=== PATIENT | male | born 1955 | race Caucasian/White ===

== ENCOUNTER 2017-06-21 10:20 | Day surgery (SDC) | payer OTHER ==
[~2017-06-21] VITALS: Ht 185.4 cm; Wt 105.2 kg
[2017-06-21] VITALS (10 sets, daily range): BP systolic 154–158; BP diastolic 51–91; PULSE 50–82; RESP 16–18; TEMP 97.8–98; O2SAT 52–98
[2017-06-21] MEDS ORDERED: IOHEXOL 350 MG/ML 100 ML BTL (for Cath Lab) OTHER ONE (10:21)
[2017-06-21] MEDS ORDERED: NS 1000P @30 MLS/HR (KVO) IV SCH (11:00)
[2017-06-21] MEDS ORDERED: NITR1SUB3 SL (11:18)
[2017-06-21] MEDS ORDERED: METO25TA3 PO (11:18)
[2017-06-21] MEDS ORDERED: OMEP20TA93 PO (11:18)
[2017-06-21] MEDS ORDERED: ATOR40TA16 PO (11:18)
[2017-06-21] MEDS ORDERED: ALFU10TA2 PO (11:18)
[2017-06-21] MEDS ORDERED: ISOS30TA3 PO (11:18)
[2017-06-21] MEDS ORDERED: ASPI81CH6 CHEW (11:18)
[2017-06-21 11:31] LABS: AUTOMATED NEUTROPHIL # 4.4 TH/MM3 (1.8-7.7); BASOPHIL # 0.1 TH/MM3 (0-0.2); BASOPHIL % 1.1 % (0.0-2.0); EOSINOPHIL # 0.1 TH/MM3 (0-0.4); EOSINOPHIL % 1.7 % (0.0-4.0); HEMATOCRIT 44.1 % (39.0-51.0); LYMPHOCYTE # 1.5 TH/MM3 (1.0-4.8); MEAN CORPUSCULAR HEMOGLOBIN 29.7 PG (27.0-34.0); MEAN CORPUSCULAR HGB CONC 34.1 % (32.0-36.0); MEAN PLATELET VOLUME 9.3 FL (7.0-11.0); MONO % 6.8 % (0.0-8.0); MONOCYTE # 0.4 TH/MM3 (0-0.9); NEUT % 67.4 % (16.0-70.0); PLATELET COUNT 282 TH/MM3 (150-450); RED BLOOD COUNT 5.06 MIL/MM3 (4.50-5.90); RED CELL DISTRIBUTION WIDTH 14.3 % (11.6-17.2); WHITE BLOOD COUNT 6.6 TH/MM3 (4.0-11.0)
[2017-06-21 11:39] LABS: PROTHROMBIN TIME - PATIENT 10.3 SEC (9.8-11.6)
[2017-06-21 11:49] LABS: BICARBONATE 23.2 MEQ/L (21.0-32.0); CALCIUM 8.9 MG/DL (8.5-10.1); CREATININE 1.06 MG/DL (0.60-1.30)
[2017-06-21] MEDS ORDERED: MIDAZOLAM HCL 2 MG/2 ML VIAL ONE ×3 (12:54→14:11)
[2017-06-21] MEDS ORDERED: HEPARIN-NS/PF FLUSH BAG 2,000 ML IV FLUSH ONE (12:54)
[2017-06-21] MEDS ORDERED: HEPARIN SODIUM - IV 10,000 UNITS/10 ML VIAL ONE (13:39)
[2017-06-21] MEDS ORDERED: CLOPIDOGREL 300 MG TAB ONE (14:02)
[2017-06-21] MEDS ORDERED: ASPIRIN 325 MG TAB ONE (14:03)
--- NOTE | 2017-06-21 14:53 | CATHPROC ---
[employer] HIS Report Study Information Study Number Admission Scheduled Start Study Start [id number] Jun 21 2017 10:20AM 06/21/2017 Jun 21 2017 12:52PM [place] [facility] Cardiac Catheterization Admit Source Facility Department Other [facility] - Coding Advisor Physician and Clinical Staff Initial Radha Rodgers Acetylene Cylinder Packing Mixer Ly Emanuel,LAKESHIA Recorder Abimbola Franks,FINGERNAIL TECHNICIAN TECH2 Recorder Mely Todd ,RT(R) Scrub Jeanette Boykin,FORESTRY LABORER TECH2 Procedures Performed Procedure Location (Site) Vessel Name Coronary Angiograms LCA Left Coronary Coronary Angiograms RCA Right Coronary Drug Eluting Inflatio LAD Mid Left Coronary Drug Eluting Inflatio RCA Mid Right Coronary L Heart Cath PTCA LAD Mid Left Coronary PTCA RCA Mid Right Coronary Wire insertion Fem Art (left) Femoral Art Wire insertion Fem Art (right) Femoral Art Equipment Time Casino Cashier Manager Description Size Mfg Part Number Used/Scraped [id number] 13:47 [employer] WIRE, ASAHI PROWATER 180CM 180CM Used *[id number] 14:17 [employer] WIRE, ASAHI PROWATER 180CM 180CM Used *[id number] TRANSDUCER, TRUWAVE [id number] 12:54 DAVENPORT PACHECO * Used W/STOCKCOCK *[id number] ART 3.5 GUIDE CATHETER [id number] 14:11 [employer] FR 6 Used RUNWAY *[id number] 13:45 [employer] VL4 GUIDE CATHETER RUNWAY FR 6 Used *[id number] INTRODUCER SET, 12:54 [employer] FR 5 [id number] *[id number] Used MICROPUNCTURE STIFF [phone] *[id number] 538-420 *[id number] 538-422 *[id number] 538-453S *[id number] 14:32 DAIG/[employer]. [employer] MED[employer] ANGIOSEAL, FR6 VIP FR 6 Used *[id number] 12:54 MEDLINE INDUSTRIES PACK, CCL CUSTOM * Used *[id number] 12:54 MEDLINE PACER PEN, SKIN DUAL W/ RULER * Used *[id number] BALLOON, 2.75 X 20MM NC [id number] 14:25 MEDTRONIC 20MM Used EUPHORA *[id number] BALLOON, 3.25 X 15MM NC [id number] 14:03 MEDTRONIC 15MM Used EUPHORA *[id number] 14:15 MEDTRONIC STENT, 2.75 26MM JANEE 2.75 26MM Used *[id number] 13:57 MEDTRONIC STENT, 3.0 22MM JANEE 3.0 22MM Used *0894626 [id number] 13:39 Sphere ([employer] 30 LOGAN INDEFLATOR Used *[id number] 12:54 Sphere ([employer] WIRE, 3MMJ .035 180CM 180CM Used *[id number] PROBE COVER, STERILE [id number] 12:54 [employer] * Used ULTRASOUND W/ GEL *[id number] 12:54 NAMIC MANIFOLD, 4 PORT * Used *[id number] 12:54 NYCOMED OMNIPAQUE, 350 MG, 150ML 150ML [id number] Used [id number] 12:54 [facility] BLANKET,WARM AIR CCL * Used *9180025 [id number] 12:54 TERUMO MEDICAL SHEATH, FR4 TERUMO (10CM) FR 4 Used *[id number] [id number] 13:41 [employer]UM[employer] MEDICAL SHEATH, FR6 TERUMO (10CM) FR 6 Used *[id number] Equipment Model, Serial, Lot Number and Expiration Data Description Model Number Serial Number Lot Number Expiration Date ART 3.5 GUIDE CATHETER [id number] 04-25-2020 RUNWAY BALLOON, 2.75 X 20MM NC [id number] 12-24-2018 EUPHORA BALLOON, 3.25 X 15MM NC [id number] 12-14-2018 EUPHORA STENT, 2.75 26MM JANEE [id number] 02-11-2019 STENT, 3.0 22MM JANEE [id number] 02-22-2019 VL4 GUIDE CATHETER RUNWAY [id number] 09-16-2018 History: Current Medications Medication Dosage/Unit Route Frequency Last Date/Time Taken ASA NTG SL Prilosec Statins (any) Imdur LOPRESSOR History: Allergies Allergy Reaction pseudoephedrine History: Risk Factors Family History of Hypertension Dyslipidemia Previous SC Previous Heart Failure Premature CAD No Yes Yes No No Prior Valve Prior PCI Prior CABG Surgery No No No Cerebrovascular Peripheral Artery Chronic Lung On Dialysis Diabetes Disease Disease Disease No No No No No History: Stress Tests Stress or Imaging Studies Performed Yes Standard Exercise Stress Stress Test Result Stress Test Ischemia Risk/Extent Test Yes Positive High Stress Echo No Stress Test SPECT No Stress Test CMR No Cardiac CTA Coronary Calcium Score No No History: Other Disease Selection Items Gerd History: Other Current Smoker Method Packs a Day Years Used Pack Years Yes Cigarettes 2 45 90 Labs Hgb (g/dl) Hct (%) WBC (l/cumm) Platelets (thousands) 11.60-17.00 35.00-51.00 4.00-11.00 150.00-450.00 15.0 44.1 6.6 282 Glucose (mg/dl) BUN (mg/dl) Creatinine (mg/dl) BUN:Creatinine (1:x) 74.00-106.00 7.00-18.00 0.50-1.30 10.00-20.00 106 17 1.0 17 Na (meq/l) K (meq/l) 136.00-145.00 3.50-5.10 142 4.6 INR (PTT:PT) 0.90-1.10 1 CPK-MB (ng/ML) 0.50-3.60 Not Drawn Medication Medication Total Dose (Bolus/Oral) Medication Total Dosage/Unit 1% XYLOCAINE 20 mL ASPIRIN 325 mg FENTANYL 150 mcg HEPARIN 8000 units NTG (IC) 100 mcg PLAVIX 600 mg VERSED 5 mg Medications (Bolus/Oral) Medication Time Given Dosage/Unit Administered By Reason VERSED 06/21/2017 1:12:33 PM 2 mg Cornelio Emanuelon 2 mg VERSED given in lab by Ly Emanuel RN in Left Hand via Peripheral IV. Ordered by Graeme Spangler. FENTANYL 06/21/2017 1:13:49 PM 50 mcg Cornelio Emanuelon 50 mcg FENTANYL given in lab by Ly Emanuel RN in Left Hand via Peripheral IV. Ordered by Radha Spangler. 1% XYLOCAINE 06/21/2017 1:14:27 PM 10 mL Radha Spangler 10 mL 1% XYLOCAINE given in lab by Radha Spangler in Right Groin via Subcutaneous. Ordered by Radha Christina. VERSED 06/21/2017 1:16:00 PM 1 mg Adelfo, Ly 1 mg VERSED given in lab by Ly Emanuel RN in Left Hand via Peripheral IV. Ordered by Graeme Spangler. 1% XYLOCAINE 06/21/2017 1:20:43 PM 10 mL Radha Spangler 10 mL 1% XYLOCAINE given in lab by Radha Spangler in Left Groin via Subcutaneous. Ordered by Radha Dowling. VERSED 06/21/2017 1:25:43 PM 1 mg Cornelio Emanuelon 1 mg VERSED given in lab by Ly Emanuel RN in Left Hand via Peripheral IV. Ordered by Graeme Spangler. FENTANYL 06/21/2017 1:26:55 PM 50 mcg Hesher, Ly 50 mcg FENTANYL given in lab by Ly Emanuel RN in Left Hand via Peripheral IV. Ordered by Radha Spangler. HEPARIN 06/21/2017 1:40:33 PM 7000 units Cornelio Emanuelon 7000 units HEPARIN given in lab by Ly Emanuel RN in Left Hand via Peripheral IV. Ordered by Radha Meraz. HEPARIN 06/21/2017 2:00:00 PM 1000 units Ly Emanuel 1000 units HEPARIN given in lab by Ly Emanuel RN in Left Hand via Peripheral IV. Ordered by Radha Meraz. FENTANYL 06/21/2017 2:08:21 PM 50 mcg Adlefo, Ly 50 mcg FENTANYL given in lab by Ly Emanuel RN in Left Hand via Peripheral IV. Ordered by Radha Spangler. VERSED 06/21/2017 2:12:36 PM 1 mg Ly Emanuel 1 mg VERSED given in lab by Ly Emanuel RN in Left Hand via Peripheral IV. Ordered by Graeme Spangler. NTG (IC) 06/21/2017 2:13:58 PM 100 mcg Radha Spangler 100 mcg NTG (IC) given in lab by Radha Spangler via Intra-coronary. Ordered by Radha Spangler. ASPIRIN 06/21/2017 2:34:25 PM 325 mg Ly Emanuel 325 mg ASPIRIN given in lab by Ly Emanuel RN via Subcutaneous. Ordered by Radha Spangler. PLAVIX 06/21/2017 2:34:44 PM 600 mg Ly Emanuel 600 mg PLAVIX given in lab by Ly Emanuel RN via Oral. Ordered by Radha Spangler. Medication (Drip) Medication Time Given Dosage/Unit Concentration/Unit Diluent (ml) Solution IV Solutions 06/21/2017 12:52:38 PM 0 mL (IV) 500 NaCl .9 Patient arrived on IV Solutions in Left Hand via Peripheral IV. Pump/Drip Flow = 20 ml/hr using NaCl .9. Initial Case Assessment Cardiovascular HR NIBP 50 115/63 Edema Present Skin color Skin None Normal Warm Dry Circulatory - Right Pulses Dorsalis Pedis Femoral 3 2 Scale (0,1,2,3,4,d) Circulatory - Left Pulses Dorsalis Pedis Femoral 3 2 Scale (0,1,2,3,4,d) Circulatory - Lower Extremities Color Lower Right Color Lower Left Normal Normal Neurological State Oriented to time-place- Alert Moves all extremities person Respiration - General Respiration Rate SpO2 (%) (B/min) 14 97 Final Case Assessment Cardiovascular HR NIBP 50 115/63 Edema Present Skin color Skin None Normal Warm Dry Circulatory - Right Pulses Dorsalis Pedis Femoral 3 2 Scale (0,1,2,3,4,d) Circulatory - Left Pulses Dorsalis Pedis Femoral 3 2 Scale (0,1,2,3,4,d) Circulatory - Lower Extremities Color Lower Right Color Lower Left Normal Normal Neurological State Oriented to time-place- Alert Moves all extremities person Respiration - General Respiration Rate SpO2 (%) (B/min) 14 97 Chronological Log Time Study Chronological Log 12:48:19 Patient arrived via Bed. 12:48:20 Patient Name, D.O.B, / Armband Verified By R.N. 12:52:27 Consent signed by the physician and the patient and verified by the Coding Advisor staff. 12:52:28 Pre-op and post- op instructions given; patient acknowledges understanding of instructions. 12:52:29 Verbal Stimulation=2 Physical Stimulation=2 Airway=2 Respiration=2 TOTAL=8. (0=absent, 1=li mited, 2=present) 12:52:31 Presedation assessment performed by Coding Advisor RN. 12:52:33 Patient has been NPO for More than 6Hrs. 12:52:34 Skin Breakdown-NONE Assessment: Initial Case, HR=50 BPM, UZWE=067/63 mmhg, Edema=None, Color=Normal, Skin = Warm, D ry Right Pulses: Nicola Ped=3, Femoral=2 Left Pulses: Nicola Ped=3, Femoral=2 12:52:35 Lower Right Extremities: Color=Normal Lower Left Extremities: Color=Normal Neurological: State=Alert, Ox3, LAM Respiration: Resp=14 B/min, SpO2=97 % 12:52:35 Genevieve Prominences Protected 12:52:37 A # 20 IV was noted in the Hand (left). Grade = PATENT 12:52:38 Patient arrived on IV Solutions in Left Hand via Peripheral IV. Pump/Drip Flow = 20 ml/hr u sing NaCl .9. 12:52:40 History and physical on the chart or being dictated. Vitals capture started with the following parameters, Patient=Adult, Interval=5 min, Initial Pr zatoyq=452 mmHg, 12:52:42 Deflation Rate=5 mmHg, Cuff placed on Left Arm 12:54:01 HR=56 bpm, OZEV=965/78 mmhg, SpO2=97.0 %, Resp=15 B/min, Pain=0, Jonelle=10, Crespo=2 12:54:22 Reference ECG taken 12:58:25 HR=55 bpm, VBPY=680/83 mmhg, SpO2=97.0 %, Resp=18 B/min 13:03:24 HR=54 bpm, TWBY=913/80 mmhg, SpO2=97.0 %, Resp=10 B/min 13:04:21 MD arrived. 13:04:49 Pressure channel 1 zeroed. 13:08:27 HR=54 bpm, BOXV=594/72 mmhg, SpO2=97.0 %, Resp=9 B/min Time Out. Correct patient, correct procedure, correct physician, power injector not loaded with contrast with surgical 13:11:38 team present. Time Out Concurred by MD and individual staff in procedure. 13:12:33 2 mg VERSED given in lab by Ly Emanuel RN in Left Hand via Peripheral IV. Ordered by Radha Adams. 13:13:49 50 mcg FENTANYL given in lab by Ly Emanuel, LAKESHIA in Left Hand via Peripheral IV. Ordered by Radha Spangler. 13:13:57 HR=55 bpm, CZTV=910/71 mmhg, SpO2=93.0 %, Resp=11 B/min, Pain=0, Jonelle=10, Crespo=2 13:13:58 Case Start 10 mL 1% XYLOCAINE given in lab by Radha Spangler in Right Groin via Subcutaneous. Ordered by Crys, 13:14:27 Radha. 13:16:00 1 mg VERSED given in lab by Ly Emanuel, LAKESHIA in Left Hand via Peripheral IV. Ordered by Radha Adams. 13:18:21 HR=57 bpm, GIVT=510/77 mmhg, SpO2=93.0 %, Resp=13 B/min, Pain=0, Jonelle=10, Crespo=2 10 mL 1% XYLOCAINE given in lab by Radha Spangler in Left Groin via Subcutaneous. Ordered by Crys, 13:20:43 Radha. 13:23:04 Access site was Left Femoral Artery. 13:23:23 HR=55 bpm, CTCN=412/71 mmhg, SpO2=95.0 %, Resp=17 B/min, Pain=0, Jonelle=10, Crespo=2 A INTRODUCER SET, MICROPUNCTURE STIFF FR 5 was advanced into the Fem Art (left) using the Bello mcdaniel 13:24:07 technique. A SHEATH, FR4 TERUMO (10CM) FR 4 was exchanged in the Fem Art (left). This was necessary in ord er to 13:24:21 accomodate a larger catheter. A JL 4.0 INFINITI CATHETER FR 4 was advanced over a wire. OMNIPAQUE, 350 MG, 150ML 150ML was us ed for 13:25:10 injections. 13:25:43 1 mg VERSED given in lab by Ly Emanuel, LAKESHIA in Left Hand via Peripheral IV. Ordered by Radha Adams. 13:26:55 50 mcg FENTANYL given in lab by Ly Emanuel, LAKESHIA in Left Hand via Peripheral IV. Ordered by Radha Spangler. 13:27:07 The LCA was injected and visualized at various angles. OMNIPAQUE, 350 MG, 150ML 150ML used . 13:28:24 HR=53 bpm, MJVK=207/70 mmhg, SpO2=88.0 %, Resp=8 B/min, Pain=0, Jonelle=10, Crespo=2 After removing the current catheter a 3DRC INFINITI CATHETER FR 4 was advanced over a WIRE, 3MM J .035 180CM 13:28:32 180CM. Recorded Pressure: Ao, HR=52, Condition=Condition 1 13:30:31 (Aorta) Ao 114/64/84 13:31:04 The RCA was injected and visualized at various angles. OMNIPAQUE, 350 MG, 150ML 150ML used . After removing the current catheter a JL 5.0 INFINITI CATHETER FR 4 was advanced over a WIRE, 3 MMJ .035 180CM 13:32:03 180CM. 13:33:25 HR=58 bpm, IKKX=356/73 mmhg, SpO2=96.0 %, Resp=11 B/min, Pain=0, Jonelle=10, Crespo=2 After removing the current catheter a PIGTAIL ANG. INFINITI CATHETER FR 4 was advanced over a W MARK, 3MMJ .035 13:36:13 180CM 180CM. Recorded Pressure: LV, HR=56, Condition=Condition 1 13:37:56 (Left Ventricle) LV 82/2/7 13:38:26 HR=56 bpm, EZCH=203/69 mmhg, SpO2=96.0 %, Resp=11 B/min, Pain=0, Jonelle=10, Crespo=2 Recorded Pressure: LV, Ao, HR=53, Condition=Condition 1 13:39:04 (Left Ventricle) LV 126/9/12, (Aorta) Ao 136/65/92 13:39:40 Catheter was removed 13:40:33 7000 units HEPARIN given in lab by Ly Emanuel RN in Left Hand via Peripheral IV. Order ed by Radha Spangler. A SHEATH, FR6 TERUMO (10CM) FR 6 was exchanged in the Fem Art (left). This was necessary in ord er to 13:41:54 accomodate a larger catheter. 13:43:55 HR=55 bpm, ZVXY=503/63 mmhg, SpO2=96.0 %, Resp=12 B/min, Pain=0, Jonelle=10, Crespo=2 A VL4 GUIDE CATHETER RUNWAY FR 6 was advanced over a wire. OMNIPAQUE, 350 MG, 150ML 150ML was u sed for 13:45:20 injections. 13:46:18 Activated Clotting Time Drawn 13:48:22 HR=55 bpm, TETC=744/73 mmhg, SpO2=98.0 %, Resp=16 B/min, Pain=0, Jonelle=10, Crespo=2 13:50:24 ACT (Normal Range 90-180) = 227 13:53:40 A WIRE, ASAHI PROWATER 180CM 180CM was inserted via Fem Art (right). 13:53:44 Interventional wire has crossed the lesion 13:54:02 HR=50 bpm, NWQL=590/72 mmhg, SpO2=98.0 %, Resp=7 B/min, Pain=0, Jonelle=10, Crespo=2 A STENT, 3.0 22MM JANEE 3.0 22MM was advanced through a VL4 GUIDE CATHETER RUNWAY FR 6 over a WI RE, 13:57:37 ASAHI PROWATER 180CM 180CM. 13:58:28 HR=50 bpm, YZSD=924/73 mmhg, SpO2=98.0 %, Resp=10 B/min, Pain=0, Jonelle=10, Crespo=2 A STENT, 3.0 22MM JANEE 3.0 22MM was deployed using a 30 LOGAN INDEFLATOR at 20 atmospheres for 30 seconds in 13:59:01 the LAD Mid. 14:00:00 1000 units HEPARIN given in lab by Ly Emanuel RN in Left Hand via Peripheral IV. Order ed by Radha Spangler. 14:01:05 Delivery device removed A BALLOON, 3.25 X 15MM NC EUPHORA 15MM was inserted over WIRE, ASAHI PROWATER 180CM 180CM via t he Fem 14:03:00 Art (left). 14:03:27 HR=50 bpm, YWMH=154/81 mmhg, SpO2=98.0 %, Resp=14 B/min, Pain=0, Jonelle=10, Crespo=2 A BALLOON, 3.25 X 15MM NC EUPHORA 15MM over a WIRE, ASAHI PROWATER 180CM 180CM in the LAD Mid w as 14:04:15 inflated using a 30 LOGAN INDEFLATOR at 18 logan for 33 sec. A BALLOON, 3.25 X 15MM NC EUPHORA 15MM over a WIRE, ASAHI PROWATER 180CM 180CM in the LAD Mid w as 14:05:41 inflated using a 30 LOGAN INDEFLATOR at 18 logan for 20 sec. 14:07:06 Balloon Removed. 14:07:07 Wire removed 14:08:06 Catheter was removed 14:08:21 50 mcg FENTANYL given in lab by Ly Emanuel RN in Left Hand via Peripheral IV. Ordered by Radha Spangler. 14:09:19 HR=54 bpm, MXIS=110/81 mmhg, SpO2=99.0 %, Resp=19 B/min A ART 3.5 GUIDE CATHETER RUNWAY FR 6 was advanced over a wire. OMNIPAQUE, 350 MG, 150ML 150ML w as used 14:11:03 for injections. 14:12:36 1 mg VERSED given in lab by Ly Emanuel RN in Left Hand via Peripheral IV. Ordered by Radha Adams. 14:13:33 HR=50 bpm, VHGW=475/78 mmhg, SpO2=99.0 %, Resp=10 B/min, Pain=0, Jonelle=10, Crespo=2 14:13:58 100 mcg NTG (IC) given in lab by Radha Spangler via Intra-coronary. Ordered by Yuri Spangler. 14:18:28 HR=57 bpm, RHJB=070/81 mmhg, SpO2=95.0 %, Resp=7 B/min, Pain=0, Jonelle=10, Crespo=2 14:19:36 A WIRE, ASAHI PROWATER 180CM 180CM was inserted via Fem Art (left). 14:19:39 Activated Clotting Time Drawn 14:19:44 Interventional wire has crossed the lesion 14:21:48 ACT (Normal Range 90-180) = 292 A STENT, 2.75 26MM JANEE 2.75 26MM was advanced through a ART 3.5 GUIDE CATHETER RUNWAY FR 6 ove r a 14:22:06 WIRE, ASAHI PROWATER 180CM 180CM. A STENT, 2.75 26MM JANEE 2.75 26MM was deployed using a 30 LOGAN INDEFLATOR at 15 atmospheres for 30 seconds 14:22:11 in the RCA Mid. 14:24:10 HR=64 bpm, CRDX=388/88 mmhg, SpO2=97.0 %, Resp=23 B/min, Pain=0, Jonelle=10, Crespo=2 14:24:49 Delivery device removed A BALLOON, 2.75 X 20MM NC EUPHORA 20MM was inserted over WIRE, ASAHI PROWATER 180CM 180CM via t he Fem 14:25:13 Art (left). A BALLOON, 2.75 X 20MM NC EUPHORA 20MM over a WIRE, ASAHI PROWATER 180CM 180CM in the RCA Mid w as 14:26:39 inflated using a 30 LOGAN INDEFLATOR at 16 logan for 23 sec. A BALLOON, 2.75 X 20MM NC EUPHORA 20MM over a WIRE, ASAHI PROWATER 180CM 180CM in the RCA Mid w as 14:27:33 inflated using a 30 LOGAN INDEFLATOR at 16 logan for 30 sec. 14:28:30 HR=57 bpm, QMBU=626/90 mmhg, SpO2=98.0 %, Resp=10 B/min, Pain=0, Jonelle=10, Crespo=2 14:28:48 Balloon Removed. 14:28:54 Wire removed 14:30:12 Catheter was removed 14:32:07 ANGIOSEAL, FR6 VIP FR 6 placement in the Fem Art (left) 14:33:34 HR=55 bpm, WVSQ=654/80 mmhg, SpO2=99.0 %, Resp=19 B/min, Pain=0, Jonelle=10, Crespo=2 14:34:18 Case End 14:34:25 325 mg ASPIRIN given in lab by Ly Emanuel, LAKESHIA via Subcutaneous. Ordered by Musa Spangler. 14:34:44 600 mg PLAVIX given in lab by Ly Emanuel RN via Oral. Ordered by Radha Spangler. Assessment: Final Case, HR=50 BPM, RZVA=249/63 mmhg, Edema=None, Color=Normal, Skin = Warm, Dry Right Pulses: Nicola Ped=3, Femoral=2 Left Pulses: Nicola Ped=3, Femoral=2 14:37:10 Lower Right Extremities: Color=Normal Lower Left Extremities: Color=Normal Neurological: State=Alert, Ox3, LAM Respiration: Resp=14 B/min, SpO2=97 % 14:37:16 Catheter(s) removed without difficulty 14:37:23 Sterile dressing applied to site 14:37:24 No case complications noted. :37:27 Cine recording checked. 14:37:28 Bedside Report will be given. 14:37:30 Implantable Device card placed in patient's chart. 14:37:46 A Left Heart Cath was performed. 14:38:28 HR=60 bpm, HISL=414/84 mmhg, YoT9=990.0 %, Resp=8 B/min, Pain=0, Jonelle=10, Crespo=2 14:47:52 Patient moved to stretcher End Study - Contrast Media Used In Study Contrast Total Opened (mL) Total Used (mL) Total Wasted (mL) Omnipaque 180 180 0 End Study - Maximum Contrast Load Max Contrast Load (mL) 525.0 End Study - Radiation Exposure Fluoro Time (minutes) 16.8 End Study - Sheaths Sheaths Pulled By Sheath Hold Time (min) Radha Spangler End Study - Patient Disposition Complications Transferred To Interventional Outcome No Critical Care Bed successful
[2017-06-21] MEDS ORDERED: TEMAZEPAM 15 MG CAP PO PRN (15:15)
[2017-06-21] MEDS ORDERED: oxyCODONE/ACETAMINOPHEN 5 MG/325 MG TAB PO PRN (15:15)
[2017-06-21] MEDS ORDERED: ATROPINE SULFATE 1 MG/ML VIAL IV PUSH PRN (15:15)
[2017-06-21] MEDS ORDERED: SODIUM CHLOR 0.9% 250 ML INJ 250 ML IV PRN (15:15)
[2017-06-21] MEDS ORDERED: ONDANSETRON HCL 4 MG/2 ML VIAL IV PUSH PRN (15:15)
[2017-06-21] MEDS ORDERED: oxyCODONE/ACETAMINOPHEN 10 MG/325 MG TAB PO PRN (15:15)
[2017-06-21] MEDS ORDERED: NITROGLYCERIN 0.4 MG SL 25 TABS/BTL SL PRN (15:15)
[2017-06-21] MEDS ORDERED: ACETAMINOPHEN 325 MG TAB PO PRN (15:15)
[2017-06-21] MEDS ORDERED: MISC INFORMATION XX ONE (15:15)
[2017-06-21] MEDS ORDERED: BACITRACIN OINT 0.9 GM PKT TOP ONE (15:15)
--- NOTE | 2017-06-21 15:33 | MA ---
cc: Radha Spangler MD, Shrimani MD DATE: 06/21/2017 PROCEDURES PERFORMED: 1. Cardiac catheterization. 2. Intracoronary stent x2, 1 to the LAD and 1 to the RCA. 3. Sedation CONSENT: Fully informed consent was obtained prior to the procedure. Risks of , bleeding, myocardial infarction, perforation, aspiration foreseen and unforeseen were reviewed. The patient fully appeared to understand the risks. PROCEDURAL STATEMENT: The patient was draped and prepped in the usual manner. The right femoral artery was entered using a micropuncture technique with ultrasound. The wire would not pass, so attention was directed to the left side where using ultrasound and a micropuncture technique, the left femoral artery was entered. A 4-Swiss sheath was placed. Via the 4-Swiss sheath, left and right coronary catheters were used to intubate the left and right coronaries. A pigtail catheter to the ventricle and multiple angiographic views carried out. At the end of this procedure, the 4-Swiss sheath was exchanged for a 6-Swiss sheath. Via the 6-Swiss sheath, a Voda left guide catheter was used to intubate the left main. Prior to this, the patient was given 7000 units of heparin and ACT of 220 was obtained. The patient was given a subsequent 1000 units of heparin during the case and the final ACT was 292. Via the Voda left guide, a 0.014 Prowater wire was used to cross the LAD. An Henrietta stent, 3.25 x 22 mm; was passed across the long 18 mm LAD lesion and deployed at nominal pressures. It was postdilated using a 3.25 noncompliant balloon inflated to high pressures. Following this, the left coronary guide was removed and a right coronary guide was placed. A similar Prowater wire was used to cross the right coronary lesion. A 26 mm Napoleon stent, which was 2.75 mm diameter was deployed at high pressure and was then postdilated with a 2.75 x 20 mm noncompliant balloon. Multiple angiographic views were carried out. Note large doses of Versed and fentanyl were used for sedation throughout the case. The patient was also given intracoronary nitroglycerin to the right coronary. FINDINGS: HEMODYNAMICS: Aortic pressure 136/65 with a mean of 92. The left ventricular pressure was 126 with a left ventricular end-diastolic pressure of 12. There was no evidence of significant gradient on pullback of the LV outflow tract and aortic valve. LEFT VENTRICULOGRAM: The overall ejection fraction was 60%. There was no evidence of significant mitral regurgitation or mural thrombus. The left anterior descending artery was a diffusely diseased vessel with moderate calcification throughout its length. The proximal LAD just before the first medium sized diagonal branch had a 50% stenosis. There was a diffuse hazy disease of the proximal to mid LAD and just beyond the diagonal branch was a 75% stenosis. The entire lesion length was about 18 mm. There was BRENDA grade 2 flow before the stent, and after the stent was placed and postdilated there was still BRENDA grade 3 flow. The 75% complex long 18 mm lesion was reduced to 0%. The diagonal branch, which was medium was jailed, but had BRENDA grade 3 flow. The circumflex vessel was a medium sized vessel and gave off a medium-sized first obtuse marginal branch and a small second obtuse marginal branch. There was a small posterolateral branch that came off the distal circumflex. The second small obtuse marginal branch had a proximal attenuated segment of about 50% compared to the rest of the vessel. The right coronary artery was a large dominant vessel. It was diffusely diseased throughout its mid section. There was a proximal 40% stenosis and then a long mid 75% stenosis that was about 20 mm in length. It had BRENDA grade 3 flow before and after stent deployment. Following stent deployment, this long lesion was reduced to 0%. There was a medium-sized RV branch that came off this vessel that was jailed, but also had excellent flow and BRENDA grade 3 following the stenting. CONCLUSION: 1. Sedation given with fentanyl and Versed. 2. Significant 2-vessel coronary artery disease with high-grade left anterior descending stenosis on a bend, high grade right coronary artery stenosis, both reduced to 0% with Henrietta drug-eluting stents. The patient tolerated the procedure well. The patient had the same chest pain that he presented with with the left anterior descending stent inflations. MD KAYLAN Hernandez/ESTEFANI , 02:45 PM , 03:32 PM [facility]ITAL[facility]helle
[2017-06-21] MEDS ORDERED: hydrALAZINE HCL 20 MG/ML VIAL IV PRN (17:45)
[2017-06-21] MEDS: SODIUM CHLOR 0.9% 1000 ML INJ 1,000 ML IV SCH (18:49)
[2017-06-21] MEDS: METOPROLOL TARTRATE 25 MG TAB PO SCH (20:26)
[2017-06-21] MEDS ORDERED: ATORVASTATIN 40 MG TAB PO SCH (21:00)
[2017-06-22] VITALS (10 sets, daily range): BP systolic 142; BP diastolic 81; PULSE 50–60; RESP 16; O2SAT 96
[2017-06-22] MEDS: SODIUM CHLOR 0.9% 1000 ML INJ 1,000 ML IV SCH (01:07)
[2017-06-22] MEDS ORDERED: ASPIRIN 81 MG CHEW TAB CHEW SCH (09:00)
[2017-06-22] MEDS ORDERED: ASPIRIN 81 MG CHEW TAB PO SCH (09:00)
[2017-06-22] MEDS ORDERED: TAMSULOSIN HCL 0.4 MG CAP PO SCH (09:00)
[2017-06-22] MEDS ORDERED: ISOSORBIDE MONONITRATE 30 MG CR TAB (IMDUR) PO SCH (09:00)
[2017-06-22] MEDS ORDERED: PANTOPRAZOLE SOD 20 MG DELAYED RELEASE TAB PO SCH (09:00)
[2017-06-22] MEDS ORDERED: CLOPIDOGREL 75 MG TAB PO SCH (09:00)
[2017-06-22] MEDS: METOPROLOL TARTRATE 25 MG TAB PO SCH (09:18)
[2017-06-22] MEDS ORDERED: PLAV75TA29 PO (13:04)
--- NOTE | 2017-06-22 13:15 | PD.CARD.PN ---
Subjective Subjective Remarks No complaints, no chest pain Wants to go home Both wounds ok Objective Medications Current Medications Medications (Trade) Dose Ordered Sig/Neelima Route Start Time Stop Time Status Last Admin (Tylenol) 325 mg Q4H PRN PO 06/21/17 15:15 (Percocet 5-325 Mg) 1 tab Q4H PRN PO 06/21/17 15:15 (Percocet 10-325 Mg) 1 tab Q4H PRN PO 06/21/17 15:15 (Restoril) 15 mg HS PRN PO 06/21/17 15:15 (Plavix) 75 mg DAILY PO 06/22/17 09:00 06/22/17 09:17 (Atropine Inj) 0.5 mg UNSCH PRN IV PUSH 06/21/17 15:15 Sodium Chloride 250 ml @ 500 mls/hr ONCE PRN IV 06/21/17 15:15 06/22/17 15:14 (Zofran Inj) 4 mg Q4H PRN IV PUSH 06/21/17 15:15 (Aspirin Chew) 81 mg DAILY CHEW 06/22/17 09:00 06/22/17 09:17 (Lipitor) 40 mg HS PO 06/21/17 21:00 06/21/17 20:26 (Imdur) 30 mg DAILY PO 06/22/17 09:00 06/22/17 09:18 (Lopressor) 25 mg BID PO 06/21/17 21:00 06/22/17 09:18 (Nitrostat Sl) 0.4 mg STAT PRN SL 06/21/17 15:15 (Flomax) 0.4 mg DAILY PO 06/22/17 09:00 06/22/17 09:17 (Protonix) 20 mg DAILY PO 06/22/17 09:00 06/22/17 09:18 (Apresoline Inj) 5 mg Q2H PRN IV 06/21/17 17:45 Vital Signs / I&O Vital Signs Date Time Temp Pulse Resp B/P (MAP) Pulse Ox O2 Delivery O2 Flow Rate FiO2 06/22/17 07:45 52 06/22/17 06:00 52 06/22/17 05:00 54 06/22/17 04:00 56 06/22/17 03:14 52 06/22/17 03:00 50 06/22/17 02:00 60 06/22/17 01:00 52 06/22/17 00:12 52 06/22/17 00:00 55 16 142/81 (101) 96 06/22/17 00:00 58 06/21/17 23:00 54 06/21/17 22:00 50 06/21/17 21:00 54 16 154/85 (108) 97 06/21/17 21:00 52 06/21/17 20:00 52 06/21/17 19:00 82 06/21/17 18:04 52 06/21/17 17:00 51 06/21/17 16:00 54 06/21/17 15:00 52 06/21/17 15:00 98.0 53 18 158/51 (86) 52 I/O 06/21/17 06/21/17 06/21/17 06/22/17 06/22/17 06/22/17 07:00 15:00 23:00 07:00 15:00 23:00 Intake Total 340 ml 500 ml Output Total 350 ml 750 ml Balance -10 ml -250 ml Intake Oral 240 ml 500 ml IV Total 100 ml Output Urine Total 350 ml 750 ml # Voids 3 Physical Exam CONSTITUTIONAL: A well-developed, well-nourished patient in no apparent distress. EYES: Conjunctiva normal. Sclera nonicteric. Eyelids normal. No xanthelasma. HEENT: Oral mucosa normal without pallor or cyanosis. NECK: JVD less than or equal to 5 cm of water. RESPIRATORY: Breathing is unlabored without accessory muscle use. Normal breath sounds. No wheezes, rales or rubs present. CARDIOVASCULAR: Normal point of maximal impulse. No cardiac thrill present. Regular rate and rhythm. No murmurs, gallops, rubs or clicks present. PULSES: Femoral arteries: 2+ bilaterally. PERIPHERAL CIRCULATION: No cyanosis, clubbing, edema or varicosities present. GASTROINTESTINAL: Normal bowel sounds. Nontender without rigidity or guarding. No masses present. No hepatomegaly. Liver is nontender to palpation and spleen is nonpalpable. Digital rectal exam - not indicated for cardiovascular exam. MUSCULOSKELETAL: No kyphosis or scoliosis present. The patient is not ambulated. Able to undergo rehabilitation. SKIN: Skin turgor is normal. No rashes. NEUROLOGICAL: Grossly oriented to person, place and time. Normal mood and appropriate affect. Laboratory Laboratory Tests Test 06/21/17 10:33 Activated Partial Thromboplast Time 23.2 SEC (24.3-30.1) Chloride Level 111 MEQ/L (98-107) Estimat Glomerular Filtration Rate 71 ML/MIN (>89) Imaging Laboratory Tests Test 06/21/17 10:33 Activated Partial Thromboplast Time 23.2 SEC (24.3-30.1) Chloride Level 111 MEQ/L (98-107) Estimat Glomerular Filtration Rate 71 ML/MIN (>89) Assessment and Plan Assessment and Plan Doing well , D?C fu 2 weeks Take plavix Same meds Radha Spangler MD Jun 22, 2017 13:15
--- NOTE | 2017-06-22 13:39 | EKG ---
Date Performed: 06/21/2017 Time Performed: 11:31:48 PTAGE: 61 years EKG: Sinus bradycardia. Low QRS voltages in limb leads Borderline ECG NO PREVIOUS TRACING DOCTOR: Rosa Arita Interpretating Date/Time 06/22/2017 13:38:51
--- NOTE | 2017-06-22 13:53 | EKG ---
Date Performed: 06/22/2017 Time Performed: 05:19:14 PTAGE: 61 years EKG: Sinus bradycardia Low QRS voltages in limb leads Borderline ECG Since the PREVIOUS TRACING , no significant change noted PREVIOUS TRACIN06/21/2017 11.31 DOCTOR: Rosa Arita Interpretating Date/Time 06/22/2017 13:52:29
== END 2017-06-22 14:14 | disposition home or self-care (01) ==
LOC: HDOC 10:20 → HDIC 10:21 → HCIS 15:02 → HDOC 06-22 14:14
PROVIDERS: ATTEND Internal Medicine Cardiovascular Disease
DX: I25.10 Atherosclerotic heart disease of native coronary artery without angina pectoris (principal); I71.4 Abdominal aortic aneurysm, without rupture; E78.5 Hyperlipidemia, unspecified; E66.9 Obesity, unspecified; Z79.02 Long term (current) use of antithrombotics/antiplatelets; Z79.82 Long term (current) use of aspirin; Z68.30 Body mass index [BMI] 30.0-30.9, adult
CPT/HCPCS: 80048; 85002; 85025; 85610; 85730; 92928; 92929; 93005; 93458; 99152; 99153; C1725; C1760; C1769; C1874; C1887; C1893; G0269; J1644; J2250; J3010; J7030; Q9967